=== PATIENT | male | born 2000 | race Hispanic/Latino ===

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

== ENCOUNTER 2021-12-13 03:26 | Emergency (ER) | payer OTHER, SELFPAY ==
[2021-12-13] MEDS ORDERED: Boostrix 0.5 ML (Tdap) VIAL (>/=7 yrs of age) ONE (03:43)
[2021-12-13 04:02] LABS: #Lymphocytes 3.1 thou/uL (1.20-3.40); #Monocytes 0.6 thou/uL (0.11-0.59); #Neutrophils 6.2 thou/uL (1.40-6.50); %Basophils 0.4 % (0.0-1.0); %Eosinophils 0.4 % (0.0-10.0); %Lymphocytes 31.2 % (21.0-51.0); %Monocytes 5.7 % (0.0-10.0); %Neutrophils 62.3 % (42.0-75.0); Hemoglobin 16.6 g/dL (14.0-18.0); Mean Corpuscular HGB CONC 36.1 g/dL (32.0-36.0); Mean Corpuscular Hemoglobin 33.9 pg (27.0-31.0); Mean Platelet Volume 8.5 fL (7.4-10.4); Platelet Count 243 thou/uL (130-400); RBC Distribution Width 11.7 % (11.5-14.5)
[2021-12-13 04:07] LABS: PTT 24.4 sec (22.9-36.1); Prothrombin Time 13.6 sec (12.0-14.7)
[2021-12-13 04:21] LABS: Acetaminophen Less than 10.0 mcg/mL (10.0-30.0); Alcohol 269 mg/dL (Less than 10); Anion Gap 21 mmol/L (10-20); BUN (Urea Nitrogen) 10 mg/dL (8.9-20.6); Calc. Creatinine Clearance 0 mL/min (70-130); Carbon Dioxide 20 mmol/L (22-29); Chloride 105 mmol/L (98-107); Potassium 3.7 mmol/L (3.5-5.1); Salicylate Less than 8.0 mg/dL (15.0-30.0); Sodium 142 mmol/L (136-145)
[2021-12-13 04:22] LABS: ALT (SGPT) 42 U/L (8-55); AST (SGOT) 48 U/L (5-34); Albumin 5.2 g/dL (3.5-5.0); Alkaline Phosphatase 70 U/L (40-110); Bilirubin, Total 0.7 mg/dL (0.2-1.2); Calcium 9.3 mg/dL (7.8-10.44); Estimated GFR 107; Glucose 108 mg/dL (70-105); Protein, Total 8.2 g/dL (6.0-8.3)
[2021-12-13] MEDS ORDERED: Lidocaine 1% MPF 2 ML VIAL ONE (04:59)
[2021-12-13 05:34] LABS: Amphetamine Not Detected (NotDetected); Barbiturates Screen Not Detected (NotDetected); Benzodiazepine Screen Not Detected (NotDetected); Cocaine Metabolite Screen Detected (NotDetected); Methadone Not Detected (NotDetected); Methamphetamine Not Detected (NotDetected); Opiate Screen Not Detected (NotDetected); Oxycodone Screen Not Detected (NotDetected); Phencyclidine (PCP) Not Detected (NotDetected); THC/Cannabinoid Screen Detected (NotDetected); Tricyclic Screen Not Detected (NotDetected)
[2021-12-13] MEDS ORDERED: Iopamidol-370 76% 500 ML 1 ML ONE (09:34)
== END 2021-12-13 05:24 ==
LOC: ERS 03:26
DX: S01.111A Laceration without foreign body of right eyelid and periocular area, initial encounter (principal); V89.2XXA Person injured in unspecified motor-vehicle accident, traffic, initial encounter
CPT/HCPCS: 12011; 70450; 70486; 71045; 71260; 72125; 74177; 76377; 80053; 80306; 80307; 83605; 85025; 85610; 85730; 90471; 90715; Q9967

== ENCOUNTER 2022-05-10 08:10 | Emergency (ER) | payer OTHER, SELFPAY ==
[2022-05-10] MEDS ORDERED: Metoclopramide HCl 10 MG/2 ML VIAL ONE (09:22)
[2022-05-10] MEDS ORDERED: Acetaminophen 500 MG TAB ONE (09:22)
[2022-05-10] MEDS ORDERED: diphenhydrAMINE 50 MG/ML VIAL ONE (09:22)
== END 2022-05-10 11:30 | disposition short-term general hospital (02) ==
LOC: ERS 08:10
DX: R51.9 Headache, unspecified (principal); Z87.891 Personal history of nicotine dependence
CPT/HCPCS: 96365; 96375; J1200; J2765

== ENCOUNTER 2024-06-04 07:10 | Emergency (ER) | payer OTHER ==
[2024-06-04] MEDS ORDERED: Ondansetron PF 4 MG/2 ML Vial ONE (07:28)
[2024-06-04 07:30] LABS: Bacteria/HPF None Seen HPF (None Seen); Bilirubin Negative (Negative); Blood, Urine Negative (Negative); CAUTI Indications for Culture Pelvic or flank pain; Clarity Clear (Clear); Glucose, Urine (Dipstick) Normal (Negative); Ketone, Urine Negative (Negative); Leukocyte Negative Leu/uL (Negative); Nitrite Negative (Negative); Protein, Urine (Dipstick) 10 mg/dL (Neg-Trace); RBC/HPF 0-3 HPF (0-3); Specific Gravity, Urine 1.028 (1.002-1.036); Squamous Epithelial None Seen HPF (0-3); Urobilinogen Normal mg/dL (Less than 2); WBC/HPF 0-3 HPF (0-3)
[2024-06-04 07:33] LABS: Urine Culture Reflex No No
[2024-06-04 07:34] LABS: #Basophils 0.03 10x3/uL (0.0-0.2); %Basophils 0.3 % (0.0-1.0); %Eosinophils 0.3 % (0.0-10.0); %Lymphocytes 4.8 % (21.0-51.0); %Neutrophils 88.4 % (42.0-75.0); Hematocrit 46.2 % (42.0-52.0); Mean Corpuscular HGB CONC 36.8 g/dL (32.0-36.0); Mean Corpuscular Hemoglobin 32.1 pg (27.0-31.0); Mean Corpuscular Volume 87.3 fL (78.0-98.0); Mean Platelet Volume 10.9 fL (7.4-10.4); Platelet Count 189 10x3/uL (130-400); RBC Distribution Width 12.8 % (11.5-14.5); Red Blood Cell (RBC) Count 5.29 mill/uL (4.70-6.10)
[2024-06-04] MEDS ORDERED: Ketorolac Tromethamine 30 MG (1 mL) VIAL ONE (07:40)
[2024-06-04 07:48] LABS: ALT (SGPT) 46 U/L (Less than 45); AST (SGOT) 47 U/L (11-34); Albumin 4.6 g/dL (3.1-4.5); Alkaline Phosphatase 60 U/L (40-110); Anion Gap 15 mmol/L (10-20); BUN (Urea Nitrogen) 16 mg/dL (8.9-20.6); Bilirubin, Total 1.1 mg/dL (0.3-1.2); Calc. Creatinine Clearance 0 mL/min (70-130); Calcium 9.5 mg/dL (7.8-10.44); Carbon Dioxide 24 mmol/L (22-29); Chloride 107 mmol/L (98-107); Estimated GFR 110; Globulin 3.6 g/dL (2.4-3.5); Glucose 119 mg/dL (70-105); Lipase 30 U/L (8-78); Potassium 4.2 mmol/L (3.5-5.1); Protein, Total 8.2 g/dL (6.0-8.3); Sodium 142 mmol/L (136-145)
[2024-06-04] MEDS ORDERED: Iopamidol-370 76% 500 ML MDV (1 ML CHARGE) ONE (14:54)
== END 2024-06-04 08:18 | disposition home or self-care (01) ==
LOC: ERS 07:10
DX: R10.9 Unspecified abdominal pain (principal); R11.2 Nausea with vomiting, unspecified; R19.7 Diarrhea, unspecified; R00.0 Tachycardia, unspecified
CPT/HCPCS: 74177; 80053; 81001; 83690; 85025; 96361; 96374; 96375; J1885; J2405; Q9967